=== PATIENT | male | born 1950 | race Caucasian/White ===

== ENCOUNTER 2022-09-17 17:17 | Outpatient (REF) | payer MEDICARE, SELFPAY ==
--- NOTE | ~2022-09-17 | XR_ITS ---
EXAMINATION: XR SHOULDER, RIGHT CLINICAL INFORMATION: Pain COMPARISON: None TECHNIQUE: AP external rotation, Grashey, scapular Y, and axillary views of the right shoulder. 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 Elevation of the humeral head relative to the glenoid fossa reflects underlying rotator cuff pathology. Osteophyte subchondral cystic changes. No acute fracture or dislocation. 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 Elevation of the humeral head relative to the glenoid fossa reflects underlying rotator cuff pathology.
== END 2022-09-17 17:18 | disposition home or self-care (01) ==
LOC: HO.HOSX 17:17
PROVIDERS: Visit Provider Physician Assistant
DX: M19.011 Primary osteoarthritis, right shoulder (principal)
CPT/HCPCS: 73030; 99202